=== PATIENT | male | born 1955 | race Caucasian/White ===

== ENCOUNTER 2018-01-21 14:08 | Inpatient (IN) | payer OTHER ==
[~2018-01-21] VITALS: Ht 182.9 cm; Wt 59.3 kg
[2018-01-21 14:56] LABS: ALBUMIN 3.6 g/dL (3.2-4.8); CHLORIDE 98 mEq/L (99-109); HEMATOCRIT 33.2 % (38.0-50.0); HEMOGLOBIN 11.3 G/DL (12.5-16.6); MCH 32.3 PG (29.0-34.0); MCV 94.9 FL (86-99); PLATELET COUNT 196 K/uL (156-360); POTASSIUM 4.8 mEq/L (3.7-5.4); RBC DIS.WIDTH-CV 17.2 % (11.8-14.6); RBC DIS.WIDTH-SD 59.6 % (39-53); SODIUM 130 mEq/L (136-147); WHITE BLOOD COUNT 12.6 K/uL (4.1-10.2)
[2018-01-21 14:59] LABS: GLUCOSE 87 mg/dL (70-99); TOTAL PROTEIN 8.1 g/dL (6.4-8.3)
[2018-01-21 15:01] LABS: TOTAL BILIRUBIN 1.1 mg/dL (0.0-1.0)
[2018-01-21 15:02] LABS: ALKALINE PHOSPHATASE 103 IU/L (3-129); CREATININE 0.9 mg/dL (0.6-1.3)
[2018-01-21 15:03] LABS: UREA NITROGEN (BUN) 23 mg/dL (9-23)
[2018-01-21 15:04] LABS: AST (GOT) 27 IU/L (2-34)
[2018-01-21 15:05] LABS: ALT (GPT) 16 IU/L (3-49)
[2018-01-21 15:09] LABS: GFR ESTIMATE (CALCULATED) > 59 mL/min/ (58.99-99999); TROP-I INTERPRETATION NEGATIVE; TROPONIN-I 0.03 ng/mL (0.0-0.30)
[2018-01-21 15:22] LABS: PTT 27.2 SEC (25-37)
[2018-01-21 21:56] LABS: TROP-I INTERPRETATION NEGATIVE; TROPONIN-I 0.03 ng/mL (0.0-0.30)
[2018-01-21 22:15] VITALS: BP 200/95
[2018-01-22 03:44] LABS: HEMATOCRIT 28.2 % (38.0-50.0); HEMOGLOBIN 9.6 G/DL (12.5-16.6); PLATELET COUNT 198 K/uL (156-360); RBC DIS.WIDTH-SD 58.4 % (39-53); WHITE BLOOD COUNT 12.2 K/uL (4.1-10.2)
[2018-01-22 03:58] LABS: ALBUMIN 3.1 g/dL (3.2-4.8)
[2018-01-22 03:59] LABS: CHLORIDE 98 mEq/L (99-109); POTASSIUM 4.5 mEq/L (3.7-5.4); SODIUM 128 mEq/L (136-147)
[2018-01-22 04:01] LABS: GLUCOSE 97 mg/dL (70-99)
[2018-01-22 04:04] LABS: ALKALINE PHOSPHATASE 94 IU/L (3-129)
[2018-01-22 04:05] LABS: CREATININE 0.7 mg/dL (0.6-1.3); GFR ESTIMATE (CALCULATED) > 59 mL/min/ (58.99-99999); TROP-I INTERPRETATION NEGATIVE; TROPONIN-I 0.03 ng/mL (0.0-0.30)
[2018-01-22 04:06] LABS: AST (GOT) 23 IU/L (2-34); UREA NITROGEN (BUN) 17 mg/dL (9-23)
[2018-01-22 04:07] LABS: ALT (GPT) 15 IU/L (3-49)
[2018-01-22 04:09] LABS: TOTAL BILIRUBIN 1.6 mg/dL (0.0-1.0)
[2018-01-22 04:39] VITALS: BP 124/70
[2018-01-22 07:52] VITALS: BP 125/86
[2018-01-22 12:34] VITALS: BP 128/71
[2018-01-22 16:11] VITALS: BP 148/72
[2018-01-22 19:38] VITALS: BP 125/66
[2018-01-22 23:26] VITALS: BP 109/60
[2018-01-23 04:06] VITALS: BP 152/84
[2018-01-23 07:20] VITALS: BP 147/69
[2018-01-23 09:13] LABS: CHLORIDE 96 MEQ/L (99-109); CREATININE 0.7 MG/DL (0.6-1.3); GFR ESTIMATE (CALCULATED) > 59 mL/min/ (58.99-99999); POTASSIUM 4.5 MEQ/L (3.7-5.4); SODIUM 130 MEQ/L (136-147); UREA NITROGEN (BUN) 23 mg/dL (9-23)
[2018-01-23 09:19] LABS: GLUCOSE 148 mg/dL (70-99)
[2018-01-23 15:07] VITALS: BP 115/70
[2018-01-24 00:21] VITALS: BP 112/79
[2018-01-24 06:20] LABS: CHLORIDE 93 MEQ/L (99-109); CREATININE 0.8 MG/DL (0.6-1.3); GFR ESTIMATE (CALCULATED) > 59 mL/min/ (58.99-99999); GLUCOSE 141 mg/dL (70-99); POTASSIUM 4.8 MEQ/L (3.7-5.4); SODIUM 128 MEQ/L (136-147); UREA NITROGEN (BUN) 29 mg/dL (9-23)
[2018-01-24 08:02] VITALS: BP 142/78
[2018-01-24 10:46] LABS: IRON 96 MCG/DL (35-150); TRANSFERRIN (TIBC) 200.6 mg/dL (215-380); TRANSFERRIN SATUR. 48 % (20-55)
[2018-01-24 10:53] LABS: ABSOLUTE RETICULOCYTE CT. 0.11 M/uL (0.02-0.08); RETIC HGB EQUIVALENT 34.9 (28-36); RETICULOCYTE COUNT 3.1 % (0.5-1.8)
[2018-01-24 11:03] LABS: FERRITIN 267 NG/ML (22-322)
[2018-01-24 11:31] VITALS: BP 113/75
[2018-01-24 13:06] LABS: FOLIC ACID (FOLATE) 19.1 NG/ML (5.0-22.0)
[2018-01-24 15:47] VITALS: BP 120/72
[2018-01-24 18:56] LABS: APPEARANCE CLEAR ((CLEAR)); BILIRUBIN NEGATIVE; BLOOD NEGATIVE; COLOR STRAW ((YELLOW)); GLUCOSE (STRIP) NEGATIVE; KETONES NEGATIVE; LEUKOCYTES NEGATIVE; NITRITE NEGATIVE; PROTEIN (STRIP) NEGATIVE; SPECIFIC GRAVITY 1.012 (1.000-1.030); UCUL ADDED? NO; UROBILINOGEN 0.2 MG/DL (0.2-1.0)
[2018-01-25 00:01] VITALS: BP 83/40
[2018-01-25 03:41] VITALS: BP 118/65
[2018-01-25 05:57] LABS: HEMATOCRIT 30.4 % (38.0-50.0); HEMOGLOBIN 10.2 G/DL (12.5-16.6); MCH 31.3 PG (29.0-34.0); MCHC 33.6 G/DL (30.0-36.0); MCV 93.3 FL (86-99); PLATELET COUNT 214 K/uL (156-360); RBC DIS.WIDTH-CV 16.6 % (11.8-14.6); RBC DIS.WIDTH-SD 57.3 % (39-53); RED BLOOD COUNT 3.26 M/uL (4.00-5.50); WHITE BLOOD COUNT 4.2 K/uL (4.1-10.2)
[2018-01-25 06:22] LABS: ALKALINE PHOSPHATASE 65 IU/L (3-129); ALT (GPT) 7 IU/L (3-49); AST (GOT) 10 IU/L (2-34); CHLORIDE 97 MEQ/L (99-109); CREATININE 0.8 MG/DL (0.6-1.3); GFR ESTIMATE (CALCULATED) > 59 mL/min/ (58.99-99999); GLUCOSE 109 mg/dL (70-99); MAGNESIUM 2.1 mg/dl (1.3-2.7); PHOSPHORUS 3.1 mg/dL (2.5-4.9); POTASSIUM 4.5 MEQ/L (3.7-5.4); SODIUM 131 MEQ/L (136-147); TOTAL BILIRUBIN 0.3 MG/DL (0.0-1.0); TOTAL PROTEIN 6.8 G/DL (6.4-8.3); UREA NITROGEN (BUN) 35 mg/dL (9-23); URIC ACID 6.8 mg/dL (3.1-9.2)
[2018-01-25 07:42] VITALS: BP 126/78
[2018-01-25 07:43] LABS: BASOPHIL (%) 0 % (0-1); EOSINOPHIL (%) 0 % (0-5); IMMATURE GRANULOCYTE (%) 0.5 % (0.0-0.7); LYMPHOCYTE (%) 42.7 % (15-42); LYMPHOCYTE COUNT 1.8 K/uL (1.0-2.8); MONOCYTE (%) 10.9 % (3-12); MONOCYTE COUNT 0.5 K/uL (0-0.8); NEUTROPHIL (%) 45.9 % (45-76); NEUTROPHIL COUNT 1.9 K/uL (1.8-6.4); PLAT.SUFFICIENCY ADEQUATE
[2018-01-25 10:58] LABS: HEPATITIS C ANTIBODY REACTIVE
[2018-01-25] MEDS ORDERED: PREDNISONE10 MG PO (11:37)
[2018-01-25] MEDS ORDERED: SPIRIVA RESPIMAT4 GM IH (11:38)
[2018-01-25] MEDS ORDERED: FUROSEMIDE20 MG PO (11:38)
[2018-01-25] MEDS ORDERED: PRAVASTATIN SOD80 MG PO (11:38)
[2018-01-25] MEDS ORDERED: AUGMENTIN875 MG PO (11:39)
== END 2018-01-25 15:51 | disposition home or self-care (01) | DRG 190 ==
LOC: EME 14:08 → ENRESERV 20:06 → EDOF 20:06 → 5SOUTH 20:06
PROVIDERS: Emergency Medicine Emergency Medical Services; Family Medicine; Hospitalist; Internal Medicine; Internal Medicine Nephrology
DX: J44.0 Chronic obstructive pulmonary disease with (acute) lower respiratory infection (principal); J18.9 Pneumonia, unspecified organism; I50.22 Chronic systolic (congestive) heart failure; E27.40 Unspecified adrenocortical insufficiency; J90 Pleural effusion, not elsewhere classified; E22.2 Syndrome of inappropriate secretion of antidiuretic hormone; J98.11 Atelectasis; Z68.1 Body mass index [BMI] 19.9 or less, adult; I11.0 Hypertensive heart disease with heart failure; I25.10 Atherosclerotic heart disease of native coronary artery without angina pectoris; J44.1 Chronic obstructive pulmonary disease with (acute) exacerbation; F17.210 Nicotine dependence, cigarettes, uncomplicated; D64.9 Anemia, unspecified; K80.20 Calculus of gallbladder without cholecystitis without obstruction; R09.02 Hypoxemia; I95.9 Hypotension, unspecified; R06.03 Acute respiratory distress; Z95.5 Presence of coronary angioplasty implant and graft; Z95.1 Presence of aortocoronary bypass graft; Z91.14 Patient's other noncompliance with medication regimen; Z82.49 Family history of ischemic heart disease and other diseases of the circulatory system
CPT/HCPCS: 71045; 71046; 71250; 76705; 80048; 80053; 81003; 82533 91; 82607; 82728; 82746; 83540; 83735; 83880; 83935; 84100; 84300; 84466; 84484; 84550; 85025; 85027; 85046; 85610; 85730; 86803; 86850; 86860; 86870; 86880; 86900; 86901; 86905; 86920; 93005; 93306; 94640; 94760; 94799; 97530 GO; 99281; 99285; J0696; J1650; J1940; J2270; J2920; J7512